=== PATIENT | female | born 1970 | race Two or more races ===

== ENCOUNTER 2020-12-28 09:00 | Outpatient (RCR) | payer BC, SELFPAY | END 2021-01-29 10:12 | disposition home or self-care (01) | LOC: PT.CARL 09:00 | PROVIDERS: Visit Provider Physician Assistant | DX: M25.521 Pain in right elbow (principal); M77.11 Lateral epicondylitis, right elbow | CPT/HCPCS: 97010; 97014; 97033; 97035; 97110; 97140; 97163; G0283 ==